=== PATIENT | male | born 1970 | race Caucasian/White ===

== ENCOUNTER 2024-12-11 17:50 | Emergency (ER) | payer OTHER, SELFPAY ==
[2024-12-11 18:03] VITALS: BP 137/72; PULSE 72; TEMP 37.6; O2SAT 100; BMI 23.4
[2024-12-11] MEDS: DEXAMETHASONE 4 MG TABLET 10 MG PO (18:34)
--- NOTE | 2024-12-12 07:48 | ED.GENADUL1 ---
HPI HPI - General Adult General Chief complaint: Upper Respiratory Infection Stated complaint: LATHARGIC Time Seen by Provider: 12/11/24 18:07 Source: patient Mode of arrival: walk-in History of Present Illness HPI narrative: Patient is a 54-year-old male presenting to the emergency department for evaluation of a sore throat. Patient states that he developed a red, sore throat over the last 24 hours. He states he has also been fatigued and sleeping more often since the onset of his symptoms. Other than the sore throat, he denies any other concurrent symptoms. Denies any chest pain or shortness of breath. No significant cough or congestion. No abdominal pain, nausea, or vomiting. No rashes. No constipation or diarrhea. Related Data Home Medications ?Medication ?Instructions ?Recorded ?Confirmed No Known Home Medications 12/11/24 12/11/24 Allergies Allergy/AdvReac Type Severity Reaction Status Date / Time Penicillins Allergy Unknown Verified 12/11/24 18:03 Review of Systems ROS Status of ROS 10 or more systems reviewed and unremarkable except as noted in history and below PFSH PFSH Social History Little interest or pleasure in doing things: not at all Feeling down, depressed, or hopeless: not at all Exam Narrative Exam Narrative: CONSTITUTIONAL: Appears fatigued, but nontoxic and generally well-nourished/well hydrated. Answering questions and following commands appropriately SKIN: Was warm and dry. EYES: Sclerae white. No conjunctival exudates EARS, NOSE, THROAT: There is erythema throughout the posterior oropharynx with mild tonsillar enlargement. There are no exudates. Uvula is midline. No peritonsillar abscess. No trismus. Speaking with a normal voice. No neck swelling. RESPIRATORY: Clear to auscultation bilaterally, no wheezes, crackles, or stridor, no use of accessory muscles CARDIOVASCULAR: Normal rate and regular rhythm. There is no S3, S4, murmur, rub. GASTROINTESTINAL: Abdomen is nondistended. MUSCULOSKELETAL: No peripheral edema. NEUROLOGIC: Patient is awake and alert. Facies were symmetrical. Constitutional Vital Signs, click to edit/add: Last Vital Signs Temp 99.6 F 12/11/24 18:03 Pulse 72 12/11/24 18:03 Resp 18 12/11/24 18:03 BP 137/72 12/11/24 18:03 Pulse Ox 100 12/11/24 18:03 O2 Del Method Room Air 12/11/24 18:03 Course Vital Signs Vital signs: Vital Signs Temperature 99.6 F 12/11/24 18:03 Pulse Rate 72 12/11/24 18:03 Respiratory Rate 18 12/11/24 18:03 Blood Pressure 137/72 12/11/24 18:03 Pulse Oximetry 100 12/11/24 18:03 Oxygen Delivery Method Room Air 12/11/24 18:03 Temperature 99.6 F 12/11/24 18:03 Pulse Rate 72 12/11/24 18:03 Respiratory Rate 18 12/11/24 18:03 Blood Pressure 137/72 12/11/24 18:03 Pulse Oximetry 100 12/11/24 18:03 Oxygen Delivery Method Room Air 12/11/24 18:03 Medical Decision Making [facility] Narrative Medical decision making narrative: Patient is a 54-year-old male presenting to the emergency department with a 24-hour history of sore throat. His vital signs are within normal limits. He is afebrile and hemodynamically stable. He is otherwise healthy with no chronic medical conditions. Patient's physical examination and history was consistent with a viral syndrome, viral pharyngitis. His streptococcal antigen screen was negative. I do not believe he has a serious bacterial infection that would warrant antibiotic treatment. There is no evidence of peritonsillar abscess. He generally appears well without any concern for respiratory/airway compromise. He was given a dose of oral Decadron for symptomatic treatment. I do believe the patient is stable for discharge at this time. They were instructed to follow up with his PCP for further care. Return precautions were given including any new or worsening symptoms. Patient understands and agrees to the plan. FINAL IMPRESSION: #Acute viral pharyngitis DISPOSITION: Discharged home CONDITION: Good Lab Data Lab results reviewed: Yes I reviewed the patient's lab results Labs: Lab Results 12/11/24 Range/Units 18:15 Streptococcus Screen Negative Discharge Plan Discharge Chief Complaint: Upper Respiratory Infection Clinical Impression: Viral infection Patient Disposition: Home, Self-Care Time of Disposition Decision: 18:36 Condition: Good Mode of Transportation: Private Vehicle Prescriptions / Home Meds: No Action No Known Home Medications Print Language: Congolese Instructions: Viral Syndrome (ED) Referrals: Physician,Non-Staff, MD [Primary Care Provider] - 1 week Discharge Date/Time: 12/11/24 18:57
== END 2024-12-11 18:57 | disposition home or self-care (01) ==
PROVIDERS: Emergency Provider Student in an Organized Health Care Education/Training Program
DX: B34.9 Viral infection, unspecified (principal); J02.9 Acute pharyngitis, unspecified
CPT/HCPCS: 87070; 87880; 99283; J8540